=== PATIENT | male | born 1965 | race Caucasian/White ===

== ENCOUNTER 2016-04-25 06:53 | Day surgery (SDC) | payer OTHER ==
[~2016-04-25 06:53] MED LIST: FENTANYL 250 MCG/5 ML AMP IV PRN; LACTATED RINGERS 1,000 ML IV SCH; MIDAZOLAM HCL 5 MG/5 ML VIAL IV PRN
[2016-04-25] MEDS ORDERED: LACTATED RINGERS 1,000 ML ONE (06:58)
[2016-04-25] MEDS ORDERED: IV START KIT ONE (06:58)
[2016-04-25] MEDS ORDERED: MIDAZOLAM HCL 5 MG/5 ML VIAL ONE (07:00)
[2016-04-25] MEDS ORDERED: FENTANYL 5 ML ONE (07:01)
--- NOTE | 2016-04-29 09:03 | SURGPATH ---
[facility] [address] [place] [id number] Patient Name: NAYELY HANKINS MR#: [id number] : 1965 Gender: M Specimen #: [id number] Collected: 04/25/2016 Received: 04/28/2016 Reported: 04/29/2016 Submitting Phys: DAVID SOLORZANO Copy To Phys: [facility] NICHOLAS BERUMEN Clinical History / Pre-Operative Diagnosis: SURVEILLANCE; FAMILY HISTORY OF COLON CA Specimen Source / Surgical Procedure Performed: #1-SIGMOID POLYP AT 15 CM X2; #2-RECTAL POLYP AT 6 CM Interpretation: 1. SIGMOID COLON, POLYP AT 15 CM, BIOPSY: - HYPERPLASTIC POLYP 2. RECTUM, POLYP AT 6 CM, BIOPSY: - TUBULAR ADENOMA Electronically Signed Out Madiha Waddell M.D. Gross Description: #1 The specimen is received in a formalin filled container labeled with the patient's name and "sigmoid polyp at 15 cm x2". Three bishop biopsies are 0.2, 0.2 and 0.4 cm. Totally embedded in cassette #1. #2 The specimen is received in a formalin filled container labeled with the patient's name and "rectal polyp at 6 cm". A polypoid bishop biopsy is 0.4 x 0.3 x 0.3 cm. Totally embedded in cassette #2. Yanci Woodard. Microscopic Description: 1. Sections show fragments of hyperplastic colonic mucosa without dysplasia. 2. Sections show fragments of adenomatous colonic mucosa without high grade dysplasia. 1: 46331 2: 54564 D12.8
== END 2016-04-25 08:35 | disposition home or self-care (01) ==
LOC: SDC 06:53
PROVIDERS: ATTEND Internal Medicine Gastroenterology
PROC: 0DBN8ZX Excision of Sigmoid Colon, Via Natural or Artificial Opening Endoscopic, Diagnostic (ICD-10-PCS; principal; 2016-04-25)
PROC: 0DBN8ZX Excision of Sigmoid Colon, Via Natural or Artificial Opening Endoscopic, Diagnostic (ICD-10-PCS; 2016-04-25)
PROC: 0DBP8ZX Excision of Rectum, Via Natural or Artificial Opening Endoscopic, Diagnostic (ICD-10-PCS; 2016-04-25)
DX: Z12.11 Encounter for screening for malignant neoplasm of colon (principal); D12.5 Benign neoplasm of sigmoid colon; D12.8 Benign neoplasm of rectum; Z80.0 Family history of malignant neoplasm of digestive organs; M79.1 Myalgia; F17.210 Nicotine dependence, cigarettes, uncomplicated
CPT/HCPCS: 45385; J3010; J2250; J7120